=== PATIENT | female | born 1950 | race African-American/Black ===

== ENCOUNTER → 2019-08-04 | Outpatient (CLI) | payer OTHER | LOC: MC.RAD 08:56 | DX: Z12.31 Encounter for screening mammogram for malignant neoplasm of breast (principal) ==

== ENCOUNTER → 2021-01-31 | Outpatient (CLI) | payer OTHER | LOC: MC.RAD 07:52 | DX: Z12.31 Encounter for screening mammogram for malignant neoplasm of breast (principal) ==